=== PATIENT | female | born 1975 | race Caucasian/White ===

== ENCOUNTER 2020-12-25 02:47 | Outpatient (CLI) | payer OTHER, SELFPAY ==
--- NOTE | 2020-12-25 | DI.DEXA_ITS ---
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 COMPARISON: No exams were available for comparison FINDINGS: Performed on a Hologic unit. Lateral image: No compression fracture evident. Lumbar Spine total T-score: -0.3 Hip total T-score:-0.1 . Reading at the femoral neck yields a T-score of -0.4. Forearm total T-score: -0.2 IMPRESSION: Bone mineral density measures in the normal range. Fracture risk is low. Note: Any spine fracture indicates 5x risk for subsequent spine fracture and 2x risk for subsequent h ip fracture. World Health Organization criteria for BMD interpretation classify patients: Normal...... T- Score at or above -1.0 Osteopenic... T- Score between -1.0 and -2.5 Osteoporosis... T-Score at or below -2.5
== END 2020-12-25 03:07 ==
PROVIDERS: PCP Family Medicine; Visit Provider Internal Medicine Gastroenterology
DX: Z13.820 Encounter for screening for osteoporosis (principal); Z79.899 Other long term (current) drug therapy
CPT/HCPCS: 77080

== ENCOUNTER 2021-01-02 02:59 | Outpatient (CLI) | payer OTHER, SELFPAY ==
[2021-01-02 10:15] LABS: Source Nasal/Nares
[2021-01-02 15:23] LABS: COVID-19 PCR Negative (Negative)
== END 2021-01-02 03:00 | disposition home or self-care (01) ==
LOC: LBO 02:59
PROVIDERS: PCP Family Medicine; Visit Provider Internal Medicine Gastroenterology
DX: Z20.828 Contact with and (suspected) exposure to other viral communicable diseases (principal); Z01.818 Encounter for other preprocedural examination
CPT/HCPCS: 87635

== ENCOUNTER 2022-07-27 09:51 | Emergency (ER) | payer OTHER, SELFPAY ==
[2022-07-27 09:59] VITALS: BP 130/74; PULSE 92; RESP 18; TEMP 37.6; O2SAT 98
--- NOTE | 2022-07-27 10:15 | DI.RAD_ITS ---
Exam(s) XR ANKLE RT COMPLETE XR FOOT RT COMPLETE EXAM: XR FOOT RT COMPLETE and XR ankle RT complete CLINICAL HISTORY: trauma with injury to lateral foot and 1 toe. TECHNIQUE: 2D digital imaging was performed of the right foot. Six images were obtained. AP, obliq ue and lateral views were obtained. COMPARISON: CR LEFT FOOT COMPLETE from 03/09/2017 FINDINGS: BONES: There is an acute minimally displaced spiral fracture of the distal fibula. It extends to the level of the ankle joint. No bony destructive lesion is seen. JOINTS: No dislocation present. SOFT TISSUE: There is soft tissue swelling around the lateral ankle. IMPRESSION: Acute minimally displaced spiral fracture of the distal fibula. Associated soft tissue swelling. DATA REPOSITORY: RADIATION DOSE DELIVERED:
[2022-07-27] MEDS: Ibuprofen 600 MG TAB PO (10:31)
--- NOTE | 2022-07-27 10:34 | ED.GENADUL_ITS ---
Discharge Plan Disposition Patient Disposition: HOME Condition: Stable Discharge Details Clinical Impression: Fracture of distal end of fibula Primary Care Provider: Leonidas King ED Provider: Xavier Mcqueen Home Meds and New Rx's Prescriptions: No Action albuterol sulfate 90 mcg/actuation HFA aerosol inhaler 2 puff IH Q6H PRN (Reason: shortness of breath or wheezing) Qty: 6.7 1RF metaxalone [Skelaxin] 800 mg tablet 800 mg PO TID PRN (Reason: muscle pain) Qty: 30 0RF ALBUTEROL SPACER DIRECTED Label Comments: Patient states that she does not remember the last time she took this medication. (DME) spirometers and accessories [One Flow Spirometer Software] 1 EACH device 1 ea Miscellaneous DIRECTED Label Comments: Patient unsure. Vitamin D3 Complete 1 EACH tablet 1 ea PO BID Label Comments: 12/30/16 takes prn. nico levalbuterol tartrate [Xopenex HFA] 15 GM HFA aerosol inhaler 2 puff Inhalation Q1H PRNQty: 3 Rx Instructions: 2 PUFFS Q HOUR FOR UP TO 3 HOUR PRN FOR WHEEZING ATTACKS; IF NO BETTER AFTER 3 DOSES, CALL lisinopril 20 mg tablet 20 mg PO DAILY Label Comments: TAKE ONE TABLET BY MOUTH EVERY DAY pantoprazole 40 mg tablet,delayed release (DR/EC) 40 mg PO DAILY Discharge Instructions Instructions: Ankle Fracture (ED) Additional Instructions: It is very important that you remain nonweightbearing and follow-up with orthopedist for further treatment of your ankle fracture. You may continue to use [id number] pain medication as needed for discomfort and for severe pain use the provided limited supply of narcotics. If you develop any new or significant worsening of symptoms feel free to return to the emergency department otherwise contact the orthopedic office tomorrow for arrangement of your follow-up appointment. Referrals: [facility] [Provider Group] Discharge Data Discharge Date/Time-TO BE ENTERED AT DEPARTURE: 07/27/22 12:35 Medical Decision Making Patient presenting to the emergency department for chief complaint of right ankle injury. Patient states that she was at a [employer] last night wearing high heels when she rolled her right ankle. Patient states mild foot pain mainly in the great toe but otherwise denies any other injury or trauma. Physical exam shows significant swelling to the lateral aspect of the ankle with pain to palpation of the lateral malleolus. Patient does show some tenderness to palpation of the base of the great toe otherwise exam is unremarkable. We will plan on performing radiological imaging Review of radiological imaging and radiologist and interpretation shows a minimally displaced spiral fracture of the distal fibular shaft with soft tissue swelling. Foot x-ray is unremarkable for acute fracture or dislocation. Patient placed in a posterior and stirrup splint and placed on the orthopedic follow-up list for acute fracture. Patient was placed in crutches and instructed to be nonweightbearing pending Ortho follow-up. Patient given limited supply of narcotics for severe pain otherwise to use [id number] pain medication as needed. After discussion of diagnosis and plan of care patient has no further needs, questions, or concerns and states clear understanding to return to the emergency department for any worsening symptoms. This documentation was generated using [employer] system, please disregard any oddities of phrase or misspellings. HPI General Mode of arrival: wheelchair . Date/Time Provider Initiated Documentation: 07/27/22 10:02 . Limitations to Documentation: no limitations . Information obtained by: patient and RN notes reviewed . History of Present Illness 46 year old F presents to the emergency department with the chief complaint of right ankle injury, described as moderate and severe, with intensity rated at 7. Quality is described as aching and sharp, and is localized to the right and lower extremity. Patient reports no radiation. Patient started experiencing this day(s) (1) and it has been constant. Immobilization improves symptom(s), Movement worsens symptoms . Patient notes no other symptoms.. Patient did receive the following treatments prior to arrival, none and other (Acetaminophen) Related Data Home Medications Medication Instructions Recorded Confirmed Albuterol Spacer DIRECTED 01/05/13 11/03/14 spirometers and accessories (One 01/05/13 03/24/18 Flow Spirometer Software) multivit with 1 ea PO BID 04/27/15 07/27/22 [id number] 18 mg iron-800 mcg-150 mg tablet (Vitamin D3 Complete) levalbuterol tartrate 45 2 puff inhalation Q1H PRN ##3 12/30/16 07/27/22 mcg/actuation aerosol inhaler (Xopenex HFA) albuterol sulfate 90 mcg/actuation 2 puff inhalation Q6H PRN 08/13/18 07/27/22 aerosol inhaler shortness of breath or wheezing #6.7 grams metaxalone 800 mg tablet (Skelaxin) 800 mg PO TID PRN muscle pain #30 10/06/18 10/06/18 tabs lisinopril 20 mg tablet 20 mg PO DAILY 07/27/22 07/27/22 pantoprazole 40 mg tablet,delayed 40 mg PO DAILY 07/27/22 07/27/22 release Previous Rx's Medication Instructions Recorded albuterol sulfate 90 mcg/actuation 2 puff inhalation Q6H PRN 08/13/18 aerosol inhaler shortness of breath or wheezing #6.7 grams metaxalone 800 mg tablet (Skelaxin) 800 mg PO TID PRN muscle pain #30 10/06/18 tabs Allergies Allergy/AdvReac Type Severity Reaction Status Date / Time Cats Allergy Severe Swollen, Uncoded 07/27/22 10:02 asthma, hives Seasonal Allergies Allergy Intermediate Congestion Uncoded 07/27/22 10:02 Cleaning Chemicals AdvReac Unknown Uncoded 07/27/22 10:02 General Stated Complaint: Orthopedic CASSY: 4 Review of Systems Narrative: 6 systems reviewed and unremarkable except what is marked below. Musculoskeletal Musculoskeletal: Reports as per HPI, Reports arthralgias, Reports joint swelling and Reports limited range of motion Integumentary/Breasts Skin/Breast: Denies unusual bruising and Denies wounds PFSH All Active Problems (Updated 07/27/22 @ 11:45 by Xavier Mcqueen NP) Fracture of distal end of fibula (Acute) Previous section (Acute 11/01/14) Breech presentation (Acute 11/01/14) Elderly multigravida (Acute 11/01/14) Spontaneous onset of labor after 37 but before 39 completed weeks of gestation, with delivery by planned section (Acute 11/01/14) Outcome of delivery, single liveborn (Acute 11/01/14) Medical History Ashkenazi [place] ancestry requiring population-specific genetic screening (02/04/16) Asthma (05/31/13) 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) 12/09/17 [facility]-7 mm NODULE Depressive disorder Social History Smoking/Tobacco Use Status: Former Tobacco Use Smoking risk assessment performed?: Yes Alcohol Intake: current Alcohol Intake frequency: holidays/special occasions only Drug use: Never Substance use type: does not use Do you feel safe at home: Yes Do you feel safe in your relationship?: Yes Exam Const General: cooperative, no acute distress and not ill appearing Orientation: alert, awake and oriented x3 Resp Effort & Inspection: normal respiratory effort, able to speak in complete sentences and no respiratory distress Cardio Rate: regular rate Rhythm: regular rhythm Skin General skin exam: no rashes or lesions noted Neuro General: patient alert, patient awake, patient oriented x3, moves all extremities and no focal motor deficits Sensory Exam: no sensory deficits noted Course Vital Signs Vital signs: Vital Signs Temperature 37.6 C 07/27/22 09:59 Pulse 92 H 07/27/22 09:59 Respiratory Rate 18 07/27/22 09:59 Blood Pressure 130/74 07/27/22 09:59 Pulse Oximetry 98 07/27/22 09:59 Temperature 37.6 C 07/27/22 09:59 Temperature Source Temporal Artery Scan 07/27/22 09:59 Pulse 92 H 07/27/22 09:59 Respiratory Rate 18 07/27/22 09:59 Respiratory Effort Non-Labored 07/27/22 10:05 Blood Pressure 130/74 07/27/22 09:59 Blood Pressure Position Sitting 07/27/22 09:59 Pulse Oximetry 98 07/27/22 09:59 Oxygen Delivery Method Room Air 07/27/22 09:59 Oxygen Flow Rate 0 07/27/22 09:59 Pain Level 7 07/27/22 10:27 Lab/Test Results Lab/Test Results: POC- Test(urine) Negative
--- NOTE | 2022-07-27 11:26 | DI.VRAD_ITS ---
PROCEDURE INFORMATION: Exam: XR Right Foot Exam date and time: 07/27/2022 11:11 AM Age: 46 years old Clinical indication: Injury or trauma; Other: Twisted; Sprain or strain; Toes; Right great toe TECHNIQUE: Imaging protocol: Radiologic exam of the Right foot. Views: 3 or more views. COMPARISON: No relevant prior studies available. FINDINGS: Bones/joints: No acute fracture. No dislocation. Soft tissues: Normal. IMPRESSION: No acute findings. Dictated and Authenticated by: Dena Elizalde MD. Ordering:JONATHAN Park MD
--- NOTE | 2022-07-27 11:29 | DI.VRAD_ITS ---
PROCEDURE INFORMATION: Exam: XR Right Ankle Exam date and time: 07/27/2022 11:13 AM Age: 46 years old Clinical indication: Injury or trauma; Other: Twisted; Fracture, traumatic; Closed fracture; Ankle; Right; Not specified TECHNIQUE: Imaging protocol: Radiologic exam of the Right ankle. Views: 3 or more views. COMPARISON: CR XR FOOT RT COMPLETE 07/27/2022 11:11 AM FINDINGS: Bones/joints: Minimally displaced spiral fracture distal fibular shaft. Distal tibia intact. Ankle mortise normal. Soft tissues: Lateral soft tissue swelling. IMPRESSION: 1. Minimally displaced spiral fracture distal fibular shaft. 2. Lateral soft tissue swelling. Dictated and Authenticated by: Dena Elizalde MD. Ordering:JONATHAN Park MD
== END 2022-07-27 12:35 | disposition home or self-care (01) ==
PROVIDERS: Emergency Provider Nurse Practitioner Family; PCP Family Medicine
DX: S82.441A Displaced spiral fracture of shaft of right fibula, initial encounter for closed fracture (principal); J45.909 Unspecified asthma, uncomplicated; Z87.891 Personal history of nicotine dependence; X50.1XXA Overexertion from prolonged static or awkward postures, initial encounter; Z79.51 Long term (current) use of inhaled steroids
CPT/HCPCS: 29515; 81025; 99283; 73610; 73630; 99284

== ENCOUNTER 2024-06-02 09:01 | Outpatient (CLI) | payer OTHER, SELFPAY ==
[2024-06-02 09:31] LABS: Abs Immature Grans 0.04 10^3/uL (0.0-0.06); Absolute Basophil Count 0.03 10^3/uL (0.0-0.2); Absolute Eosinophil Count 0.06 10^3/uL (0.0-0.7); Absolute Lymphocyte Count 1.92 10^3/uL (1.2-3.4); Absolute Monocyte Count 0.56 10^3/uL (0.1-0.8); Basophils % 0.4 %; Eosinophils % 0.8 %; HCT 42.2 % (36.0-46.0); HGB 13.8 g/dL (11.2-15.7); Immature Grans % 0.5 %; Lymphocytes % 24.9 %; MCH 27.3 pg (27.0-33.0); MCHC 32.7 % (32.0-36.0); MCV 84 fL (80-95); MPV 9.5 fL (8.0-11.0); Monocytes % 7.3 %; Neutrophils % 66.1 %; Platelet Count 270 10^3/uL (130-400); RBC 5.05 10^6/uL (3.93-5.22); RDW 13.4 % (11.7-14.6); WBC 7.71 10^3/uL (4.4-10.8)
[2024-06-02 10:20] LABS: ALT 10 U/L (14-59); AST 16 U/L (15-37); Albumin 3.4 g/dL (3.4-5.0); Alkaline Phosphatase 71 U/L (46-116); Anion Gap 7.9 mmol/L (3-11); BUN 22 mg/dL (7-18); Bilirubin, Total 0.49 mg/dL (0.2-1.0); CO2 27.1 mmol/L (21.0-32.0); Calculated LDL 187 mg/dL (<100); Chloride 103 mmol/L (98-107); Cholesterol 292 mg/dL (<200); Estimated GFR 69.49 (mL/min/1.73m2); Glucose 94 mg/dL (74-106); HDL Cholesterol 74 mg/dL (40-60); Potassium 4.3 mmol/L (3.5-5.1); Sodium 138 mmol/L (136-145); TSH (W/Ref FT4) 1.66 uIU/mL (0.36-3.74); Total Protein 7.4 g/dL (6.4-8.2); Triglyceride 159 mg/dL (<150)
[2024-06-02 10:37] LABS: Hemoglobin A1C 5.4 % (<5.7)
[2024-06-03 09:45] LABS: Hepatitis C Ab w Rflx HCV PCR Negative (Negative)
[2024-06-03 09:51] LABS: HBs Antibody, Quant <3.1 mIU/mL (See Note); Hep B Surface Ab Negative (See Note); Hepatitis B Core Antibody Negative (Negative); Hepatitis B Surface Antigen Negative (Negative)
[2024-06-03 11:45] LABS: HIV-1/2 Ag & Ab Screen Negative (Negative)
== END 2024-06-02 09:02 | disposition home or self-care (01) ==
LOC: LBO 09:02
PROVIDERS: PCP Nurse Practitioner Family; Visit Provider Nurse Practitioner Family
DX: Z76.89 Persons encountering health services in other specified circumstances (principal); Z11.59 Encounter for screening for other viral diseases
CPT/HCPCS: 36415; 80053; 80061; 86704; 86706; 86803; 87340; 87389; 83036; 84443; 85025

== ENCOUNTER 2024-06-23 02:28 | Outpatient (CLI) | payer OTHER, SELFPAY ==
--- NOTE | 2024-06-23 07:00 | DI.DEXA_ITS ---
Exam(s) XR DEXA BONE DENSITY W/WO BRAIN EXAM: XR DEXA BONE DENSITY W/WO BRAIN CLINICAL HISTORY: PPI,chcf use ppi,z79.899,barretts esophagus,k22.70 TECHNIQUE: COMPARISON: CR XR DEXA BONE DENSITY W/WO BRAIN from 12/25/2020 FINDINGS: Lateral Spine Image: Unremarkable. No compression deformities identified. Left hip: Total T-Score: 0.4. This compares to -0.1 on the prior examination. Total Z-Score: 0.8 T- and Z-scores: Within normal limits. Lumbar Spine: Total T-Score: -0.7. This compares to -0.3 on the prior examination. Total Z-Score: -0.1 T- and Z-scores: Within normal limits. IMPRESSION: No evidence of osteoporosis.
== END 2024-06-23 02:48 ==
LOC: DI 02:28
PROVIDERS: PCP Nurse Practitioner Family; Visit Provider Nurse Practitioner Family
DX: K22.70 Barrett's esophagus without dysplasia (principal); Z79.899 Other long term (current) drug therapy; Z13.820 Encounter for screening for osteoporosis
CPT/HCPCS: 77080

== ENCOUNTER 2025-05-22 03:25 | Outpatient (CLI) | payer OTHER, SELFPAY ==
--- NOTE | 2025-05-22 11:58 | DI.RAD_ITS ---
Exam(s) XR SHOULDER RT COMPLETE 2+V EXAM: XR SHOULDER RT COMPLETE 2+V CLINICAL HISTORY: Right shoulder pain M25.511 PAIN RT SHOULDER. TECHNIQUE: 2D digital imaging was performed of the right shoulder. Five images were obtained. AP, Grashey, Y-view and axillary views were obtained. COMPARISON: No exams were available for comparison FINDINGS: BONES: No acute fracture is present. No bony destructive lesion is seen. JOINTS: No dislocation present. The articular surfaces are well maintained. SOFT TISSUE: Normal. IMPRESSION: Unremarkable radiographs of the right shoulder. There is concern for internal derangement, an MRI may be obtained for further evaluation. DATA REPOSITORY: RADIATION DOSE DELIVERED:
== END 2025-05-22 03:45 ==
LOC: DI 03:25
PROVIDERS: PCP Nurse Practitioner Family; Visit Provider Nurse Practitioner Family
DX: M25.511 Pain in right shoulder (principal)
CPT/HCPCS: 73030

== ENCOUNTER 2025-06-22 03:56 | Outpatient (CLI) | payer OTHER, SELFPAY ==
--- NOTE | 2025-06-22 13:50 | DI.MRI_ITS ---
Exam(s) MR UPPER JOINT RT WO EXAM: MR UPPER JOINT RT WO CLINICAL HISTORY: ongoing right shoulder pain, labral tear? M24.811 INTERNAL DERANGEMENT RT. TECHNIQUE: Multiplanar multisequence MRI was performed. COMPARISON: Plain films 22 May 2025 FINDINGS: BONES: There is no fracture or contusion pattern. JOINTS:The acromioclavicular joint is normal. The glenohumeral joint is normal. TENDONS: Supraspinatus: Diffusely thickened. Focal fold thickness tear with mild retraction noted distally, involving the anterior fibers. Infraspinatus: Unremarkable mild thickening and increased signal but no visible tear. Subscapularis: Unremarkable. Teres Minor: Unremarkable. Biceps and [place]: Unremarkable. MUSCLES: Unremarkable. GLENOID LABRUM: Unremarkable on this noncontrast examination. SOFT TISSUES: Unremarkable. BURSAE: Subacromial and subdeltoid bursae shows a small amount of fluid.. IMPRESSION: Full-thickness tear with mild retraction of the anterior portion of the supraspinatus tendon. Infraspinatus tendinosis. DATA REPOSITORY:
== END 2025-06-22 04:16 ==
LOC: DI 03:56
PROVIDERS: PCP Nurse Practitioner Family; Visit Provider Nurse Practitioner Family
DX: M24.811 Other specific joint derangements of right shoulder, not elsewhere classified (principal)
CPT/HCPCS: 73221

== ENCOUNTER 2025-09-01 01:50 | Outpatient (CLI) | payer OTHER, SELFPAY ==
[2025-09-01 08:41] LABS: ALT 22 U/L (10-49); AST 22 U/L (<34); Albumin 3.9 g/dL (3.2-5.0); Alkaline Phosphatase 48 U/L (46-116); Anion Gap 9.1 mmol/L (3-11); BUN 20 mg/dL (9-23); Bilirubin, Total 0.70 mg/dL (0.2-1.2); CO2 24.9 mmol/L (20.0-31.0); Calcium 9.0 mg/dL (8.3-10.6); Chloride 107 mmol/L (98-107); Cholesterol 225 mg/dL (<200); Glucose 82 mg/dL (74-106); HDL Cholesterol 72 mg/dL (>40); Potassium 4.3 mmol/L (3.5-5.1); Sodium 141 mmol/L (136-145); Total Protein 6.5 g/dL (5.7-8.2)
== END 2025-09-01 01:51 | disposition home or self-care (01) ==
LOC: LBO 01:50
PROVIDERS: PCP Nurse Practitioner Family; Visit Provider Nurse Practitioner Family
DX: E78.5 Hyperlipidemia, unspecified (principal)
CPT/HCPCS: 36415; 80053; 80061